=== PATIENT | male | born 1960 | race Caucasian/White ===

== ENCOUNTER → 2021-12-26 | Outpatient (CLI) | payer BC ==
[~2021-12-26] MED LIST: BRILINTA 90 MG90 MG PO; CRESTOR 10 MG T10 MG PO; ECOTRIN81 MG PO; FLEXERIL 10 MG10 MG PO; MOBIC15 MG PO; PRILOSEC OTC20 MG PO; VITAMIN D35000 UNI1 PO
[2021-12-27 07:12] LABS: RHEUMATOID ARTHRITIS FACTOR <10.0 IU/mL (<14.0)
[2021-12-27 11:17] LABS: HBSAG SCREEN Negative (Negative); HEP A AB, IGM Negative (Negative); HEP B CORE AB, IGM Negative (Negative); HEP C VIRUS AB 0.1 (0.0-0.9)
[2021-12-27 14:13] LABS: ANGIOTENSIN-CONVERTING ENZYME 61 U/L (14-82)
[2021-12-27 15:13] LABS: TREPONEMA PALLIDUM ANTIBODIES Non Reactive (Non Reactive)
[2021-12-27 16:13] LABS: LYME IGG/IGM AB <0.91 ISR (0.00-0.90)
[2021-12-28 08:15] LABS: T PALLIDUM AB (FTA-AB) Non Reactive (Non Reactive)
[2021-12-28 17:09] LABS: ATYPICAL PANCA 1:20 titer (Neg:<1:20); CYTOPLASMIC (C-ANCA) <1:20 titer (Neg:<1:20); PERINUCLEAR (P-ANCA) <1:20 titer (Neg:<1:20)
[2021-12-28 23:09] LABS: QUANTIFERON MITOGEN VALUE >10.00 IU/mL (.); QUANTIFERON NIL VALUE 0.36 IU/mL (.); QUANTIFERON TB1 AG VALUE 9.15 IU/mL (.); QUANTIFERON TB2 AG VALUE >10.00 IU/mL (.); QUANTIFERON-TB GOLD PLUS Positive (Negative)
== END ==
LOC: LAB 11:35
PROVIDERS: Ophthalmology
DX: H35.372 Puckering of macula, left eye (principal); H20.00 Unspecified acute and subacute iridocyclitis
CPT/HCPCS: 36415; 80074; 81374; 82164; 86038; 86256; 86431; 86618; 86780

== ENCOUNTER 2022-03-25 19:35 | Emergency (ER) | payer BC ==
[2022-03-25] MEDS ORDERED: PREPARATION H R28 GM TP ×2 (20:45→23:46)
[2022-03-25] MEDS ORDERED: HYDROCODON-ACE1 EAC4 PO ×2 (20:45→23:46)
[2022-03-25] MEDS ORDERED: COLACE100 MG PO ×2 (20:45→23:46)
== END 2022-03-25 21:05 | disposition home or self-care (01) ==
LOC: ER1 19:35
DX: K64.8 Other hemorrhoids (principal); I51.9 Heart disease, unspecified; E78.5 Hyperlipidemia, unspecified; Z95.5 Presence of coronary angioplasty implant and graft
CPT/HCPCS: 96372; 99283; J1885

== ENCOUNTER → 2022-03-27 | Outpatient (CLI) | payer BC ==
[~2022-03-27] MED LIST changes: +COLACE100 MG PO; +HYDROCODON-ACE1 EAC4 PO; +PREPARATION H R28 GM TP
== END ==
LOC: LAB 09:55
DX: I25.10 Atherosclerotic heart disease of native coronary artery without angina pectoris (principal); I10 Essential (primary) hypertension; E78.5 Hyperlipidemia, unspecified; Z00.00 Encounter for general adult medical examination without abnormal findings
CPT/HCPCS: 36415; 80061